=== PATIENT | male | born 1975 | race Caucasian/White ===

== ENCOUNTER 2016-06-05 09:05 | Emergency (ER) | payer OTHER ==
[2016-06-05 09:06] VITALS: BMI 37.1
[2016-06-05 10:05] LABS: BASO # 0.1 K/uL (0.0-0.2); BASO % 0.6 % (0.0-2.0); EOS # 0.1 K/uL (0.0-0.7); EOS % 1.7 % (0.0-4.0); HEMATOCRIT 45.6 % (35.0-51.0); LYMPH % 25.1 % (20.0-40.0); MEAN CELL VOLUME 87.7 fL (80.0-94.0); MEAN CORPUSCULAR HEMOGLOBIN 29.2 pg (27.0-31.0); MEAN CORPUSCULAR HGB CONC 33.4 g/dL (33.0-37.0); MONO # 0.9 K/uL (0.0-0.8); MONO % 10.8 % (0.0-10.0); RED CELL DISTRIBUTION WIDTH 12.8 % (11.5-14.5)
[2016-06-05 10:13] LABS: CHLORIDE 102 mmol/L (98-107); POTASSIUM 4.1 mmol/L (3.6-5.2); SODIUM 140 mmol/L (132-148)
[2016-06-05 10:15] LABS: BILIRUBIN,TOTAL 0.6 mg/dL (0.2-1.3); GFR AFRICAN-AMERICAN > 60
[2016-06-05 10:16] LABS: ALB/GLOB RATIO 1.1 (1.0-2.1); ALKALINE PHOSPHATASE 95 U/L (38-126); ALT/SGPT 58 U/L (21-72); AST/SGOT 43 U/L (17-59); BLOOD UREA NITROGEN 19 mg/dL (9-20); CALCIUM 8.8 mg/dl (8.6-10.4); CARBON DIOXIDE 27 mmol/L (22-30); GLUCOSE,RANDOM 79 mg/dL (75-110); TOTAL PROTEIN 8.1 g/dL (6.3-8.3)
--- NOTE | 2016-06-05 10:42 | RAD ---
HISTORY: SOB COMPARISON: Chest x-ray performed 04/10/16 TECHNIQUE: Chest, one view. FINDINGS: LUNGS: No focal consolidation. Please note that chest x-ray has limited sensitivity for the detection of pulmonary masses. PLEURA: No significant pleural effusion identified. No definite pneumothorax . CARDIOVASCULAR: Heart size appears within normal limits. OSSEOUS STRUCTURES: Degenerative changes of the spine. VISUALIZED UPPER ABDOMEN: Unremarkable. OTHER FINDINGS: None. IMPRESSION: No focal consolidation, significant pleural effusion, or definite pneumothorax identified.
--- NOTE | 2016-06-05 11:48 | C.PDOC ---
History Of Present Illness 41 year old male with a history of stroke and hypercholesterolemia, presents to the ED with complaint of constant chest pressure associated with SOB. PT notes that he works at [employer] with lots of dust which exacerbated the symptoms. (+ ) nervous and anxious. He reports he has had similar episodes in the past and he has not been evaluated by a curriculum and assessment director. Denies diaphoresis, nausea, fever, chills, radiation of pain, or any other complaints at this time. 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 History/Exam Limitations: language barrier Onset/Duration Of Symptoms: Days Current Symptoms Are (Timing): Still Present Severity: Mild Quality: Pressure Associated Symptoms: denies: Nausea, Diaphoresis Past Medical History Reviewed: Historical Data, Nursing Documentation, Vital Signs Vital Signs: Last Vital Signs Temp 98.2 F 06/05/16 13:53 Pulse 65 06/05/16 13:53 Resp 16 06/05/16 13:53 BP 115/70 06/05/16 13:53 Pulse Ox 100 06/05/16 13:53 - Medical History PMH: HTN, Hypercholesterolemia, Hyperlipidemia, TIA (SEPTEMBER 2015) Family History: States: Stroke (Father) - Social History Hx Alcohol Use: No Hx Substance Use: No - Immunization History Hx Tetanus Toxoid Vaccination: No Hx Influenza Vaccination: No Hx Pneumococcal Vaccination: No Review Of Systems Except As Marked, All Systems Reviewed And Found Negative. Constitutional: Negative for: Fever, Chills Cardiovascular: Positive for: Chest Pain (+Chest pressure). Negative for: Palpitations Respiratory: Positive for: Shortness of Breath. Negative for: Cough Gastrointestinal: Negative for: Nausea, Vomiting Musculoskeletal: Negative for: Back Pain Neurological: Negative for: Weakness, Numbness Psych: Positive for: Anxiety Physical Exam - Physical Exam Appears: Non-toxic, No Acute Distress, Other (+Anxious) Skin: Normal Color, Warm, Dry Head: Atraumatic, Normacephalic Eye(s): bilateral: Normal Inspection, EOMI Nose: Normal Oral Mucosa: Moist Throat: Normal, No Erythema, No Exudate Neck: Normal ROM, Supple Chest: Symmetrical, No Deformity, No Tenderness Cardiovascular: Rhythm Regular, No Murmur Respiratory: Normal Breath Sounds, No Accessory Muscle Use, No Rales, No Rhonchi , No Wheezing Gastrointestinal/Abdominal: Normal Exam, Soft, No Tenderness Extremity: Normal ROM Neurological/Psych: Oriented x3, Normal Speech, Normal Cognition ED Course And Treatment - Laboratory Results Result Diagrams: 06/05/16 10:01 06/05/16 10:01 ECG: Interpreted By Me, Viewed By Me ECG Rhythm: Sinus Rhythm Rate From EC O2 Sat by Pulse Oximetry: 96 (Room air) Pulse Ox Interpretation: Normal - Radiology CXR: Viewed By Me, Read By Radiologist CXR Interpretation: Yes: No Acute Disease Progress Note: CXR, EKG, and Blood work ordered and reviewed. patient treated with Aspirin. On re-evaluation, pt notes some SOB persists. ALbuterol ordered. Upon reevaluation, patient notes chest pain and SOB improved. PT is resting comfortably, is no longer having chest pressure or shortness of breath. Patient is being discharged home and is being advised to follow up with his PMD in 1-3 days. Case discussed with Dr Turner who evaluated pt and agree dupon plan and discharge. Disposition - Disposition Referrals: [facility] at [facility] [Outside] Disposition: HOME/ ROUTINE Disposition Time: 13:40 Condition: STABLE Additional Instructions: Vaya a martinez mdico o la clnica en 1-3 pagan sin falta, para mas evaluacin. [place] los medicamentos barbara indicado. Volver a la nela de emergencia en cualquier momento si los sntomas persisten o empeoran. Prescriptions: Albuterol HFA [Ventolin HFA 90 mcg/actuation (8 g)] 2 puff IH [id number] #1 puff Instructions: Dyspnea (ED) Print Language: CZECH - Clinical Impression Clinical Impression: Chest pain, Shortness of breath - PA / PROBLEM MANAGER / Resident Statement MD/DO has reviewed & agrees with the documentation as recorded. - Scribe Statement The provider has reviewed the documentation as recorded by the Scribe Tirso León. All medical record entries made by the Scribe were at my direction and personally dictated by me. I have reviewed the chart and agree that the record accurately reflects my personal performance of the history, physical exam, medical decision making, and the department course for this patient. I have also personally directed, reviewed, and agree with the discharge instructions and disposition.
[2016-06-05] MEDS ORDERED: Albuterol 0.083% Inhal Sol (2.5 mg/3 mL) UD IH STA (11:58)
[2016-06-05] MEDS ORDERED: Albuterol 0.083% Inhal Sol (2.5 mg/3 mL) UD ONE (12:25)
[2016-06-05 13:54] VITALS: BP 115/70; PULSE 65; RESP 16; TEMP 98.2
[2016-06-05 14:37] VITALS: O2SAT 96
--- NOTE | 2016-06-13 12:34 | CARD ---
APPROVED REPORT EKG Measurement Heart [id number] HI 146P45 [id number] <Conclusion> Normal sinus rhythm Left axis deviation Abnormal ECG
== END 2016-06-05 13:53 | disposition home or self-care (01) ==
LOC: C.ER 09:05
DX: R07.9 Chest pain, unspecified (principal); R06.02 Shortness of breath

== ENCOUNTER 2016-07-09 09:53 | Emergency (ER) | payer OTHER ==
[2016-07-09 09:53] VITALS: BMI 37.1
[2016-07-09 10:13] VITALS: TEMP 98
--- NOTE | 2016-07-09 10:14 | C.PDOC ---
Chief Complaint (Nursing): Chest Pain Past Medical History Vital Signs: Last Vital Signs Temp 98.6 F 07/09/16 10:01 Pulse 65 07/09/16 10:01 Resp 18 07/09/16 10:01 BP 135/77 07/09/16 10:01 Pulse Ox 97 07/09/16 10:01 - Medical History PMH: HTN, Hypercholesterolemia, Hyperlipidemia, TIA (SEPTEMBER 2015) Denies: Chronic Kidney Disease Family History: States: Unknown Family Hx, Stroke (Father) - Social History Hx Alcohol Use: No Hx Substance Use: No - Immunization History Hx Tetanus Toxoid Vaccination: No Hx Influenza Vaccination: No Hx Pneumococcal Vaccination: No ED Course And Treatment O2 Sat by Pulse Oximetry: 97
[2016-07-09] MEDS ORDERED: Aspirin 325 mg EC Tablets PO STA (10:38)
[2016-07-09] MEDS ORDERED: Aspirin 325 mg EC Tablets PO ONE (10:48)
[2016-07-09 10:52] LABS: BASO # 0.1 K/uL (0.0-0.2); BASO % 0.7 % (0.0-2.0); EOS # 0.2 K/uL (0.0-0.7); EOS % 1.9 % (0.0-4.0); HEMATOCRIT 44.1 % (35.0-51.0); LYMPH # 2.3 K/uL (1.0-4.3); LYMPH % 28.8 % (20.0-40.0); MEAN CELL VOLUME 87.5 fL (80.0-94.0); MEAN CORPUSCULAR HEMOGLOBIN 29.4 pg (27.0-31.0); MEAN CORPUSCULAR HGB CONC 33.6 g/dL (33.0-37.0); MEAN PLATELET VOLUME 8.3 fL (7.2-11.7); MONO # 0.8 K/uL (0.0-0.8); NRBC % 0.1 % (0.0-2.0); RED CELL DISTRIBUTION WIDTH 12.8 % (11.5-14.5); WHITE BLOOD COUNT 8.1 K/uL (4.8-10.8)
[2016-07-09 11:01] LABS: CHLORIDE 101 mmol/L (98-107); POTASSIUM 3.6 mmol/L (3.6-5.2); SODIUM 141 mmol/L (132-148)
[2016-07-09 11:03] LABS: GFR AFRICAN-AMERICAN > 60
[2016-07-09 11:04] LABS: ALB/GLOB RATIO 1.2 (1.0-2.1); ALKALINE PHOSPHATASE 119 U/L (38-126); ALT/SGPT 56 U/L (21-72); AST/SGOT 42 U/L (17-59); BILIRUBIN,TOTAL 0.7 mg/dL (0.2-1.3); BLOOD UREA NITROGEN 16 mg/dL (9-20); CALCIUM 8.5 mg/dl (8.6-10.4); CARBON DIOXIDE 25 mmol/L (22-30); GLUCOSE,RANDOM 98 mg/dL (75-110); TOTAL PROTEIN 7.6 g/dL (6.3-8.3)
[2016-07-09] MEDS ORDERED: Albuterol 0.083% Inhal Sol (2.5 mg/3 mL) UD IH STA (11:26)
--- NOTE | 2016-07-09 11:36 | RAD ---
PROCEDURE: CHEST RADIOGRAPH, 1 VIEW. Technique: Single view portable semi erect @ 10:41. HISTORY: chest pain COMPARISON: 05/2016. FINDINGS: LUNGS: Clear. PLEURA: No pneumothorax or pleural fluid seen. CARDIOVASCULAR: No radiographic findings to suggest acute or significant cardiovascular disease. OSSEOUS STRUCTURES: No significant abnormalities. VISUALIZED UPPER ABDOMEN: Normal. OTHER FINDINGS: None. IMPRESSION: No active disease. No acute/significant interval changes.
--- NOTE | 2016-07-09 11:52 | C.PDOC ---
History Of Present Illness 41 year old patient, with a past medical history of hypertension, hypercholesterolemia, hyperlipidemia, and TIA, presents to the ED complaining of frequent episodes of mid sternal chest pain for months. Patient states the pain is worse with movement and deep inspiration. Patient had a similar episode today at 7 am. Patient was seen by his PMD who told him his symptoms are muscular and stress based. Patient reports he had a full stress test done and was "good" less then 3 month ago. Patient is Tajik speaking, translation help used. Patient denies shortness of breath, nausea, vomiting, suicidal ideation, homicidal ideation, numbness or weakness. Patient notes he works all 7 days a week, from 5 am to 4 pm. Patient has been stressed recently. Pt states albuterol helps when he gets SOB from dust. similar sob happened in the past. Time Seen by Provider: 07/09/16 10:15 Chief Complaint (Nursing): Chest Pain History Per: Patient History/Exam Limitations: language barrier (ED staff translated) Onset/Duration Of Symptoms: Hrs (7 am today) Current Symptoms Are (Timing): Still Present Context: Other Severity: Mild Pain Scale Rating Of: 3 Quality: "Pain" Exacerbating Factors: Movement, Deep Breathing Alleviating Factors: None Recent travel outside of the [place]: No Past Medical History Reviewed: Historical Data, Nursing Documentation, Vital Signs Vital Signs: Last Vital Signs Temp 98 F 07/09/16 10:09 Pulse 62 07/09/16 12:30 Resp 13 07/09/16 12:30 BP 116/71 07/09/16 12:30 Pulse Ox 97 07/09/16 14:22 - Medical History PMH: HTN, Hypercholesterolemia, Hyperlipidemia, TIA (SEPTEMBER 2015) Family History: States: Stroke (Father) - Social History Hx Alcohol Use: No Hx Substance Use: No - Immunization History Hx Tetanus Toxoid Vaccination: No Hx Influenza Vaccination: No Hx Pneumococcal Vaccination: No Review Of Systems Except As Marked, All Systems Reviewed And Found Negative. Cardiovascular: Positive for: Chest Pain Respiratory: Negative for: Shortness of Breath Gastrointestinal: Negative for: Nausea, Vomiting Neurological: Negative for: Weakness, Numbness Psych: Negative for: Suicidal ideation Physical Exam - Physical Exam Appears: Non-toxic, No Acute Distress Skin: Warm, Dry Head: Atraumatic, Normacephalic Eye(s): bilateral: Normal Inspection, EOMI Oral Mucosa: Moist Neck: Normal ROM, Supple Chest: Symmetrical, No Tenderness Cardiovascular: Rhythm Regular Respiratory: Normal Breath Sounds, No Accessory Muscle Use, No Rales, No Rhonchi , No Wheezing Gastrointestinal/Abdominal: Soft, No Tenderness Back: Normal Inspection, No CVA Tenderness Extremity: Normal ROM Neurological/Psych: Oriented x3, Normal Speech, Normal Cognition, Normal Motor, Normal Sensation Gait: Steady ED Course And Treatment - Laboratory Results Result Diagrams: 07/09/16 10:45 07/09/16 10:45 ECG: Interpreted By Me, Viewed By Me ECG Rhythm: Sinus Rhythm ECG Interpretation: Normal Rate From EC (bpm) O2 Sat by Pulse Oximetry: 97 (room air) Pulse Ox Interpretation: Normal - Radiology CXR: Interpreted by Me CXR Interpretation: Yes: No Acute Disease Progress Note: Plan: EKG, Labs, Chest x-ray, Ecotrin, Albuterol. Upon reassessment, patient's symptoms are resolved. Patient is discharged home with a prescription for Albuterol. Return if symptoms worsen. Reassessment Condition: Improved (on re-evaluation reports resolution of chest pain and sob) Disposition Counseled Patient/Family Regarding: Studies Performed, Diagnosis, Need For Followup, Rx Given - Disposition Referrals: Usha Falk MD [Medical Doctor] - Catherine Mejia MD [Staff Provider] - Disposition: HOME/ ROUTINE Disposition Time: 11:53 Condition: STABLE Additional Instructions: FOLLOW UP WITH YOUR PMD AND APPLE PICKER IN 1-2 DAYS FOR RE-EVALUATION. IF SYMPTOMS GET WORSE OR ANY NEW CONCERNING SYMPTOMS DEVELOP RETURN TO ED. Prescriptions: Ibuprofen [Motrin Tab] 1 tab PO Q6H PRN #15 tab PRN Reason: Pain, Moderate (4-7) Albuterol HFA [Ventolin HFA 90 mcg/actuation (8 g)] 2 puff IH Q4H PRN #1 bottle PRN Reason: Shortness Of Breath Instructions: Chest Pain (ED) Forms: Gen Discharge Inst Tajik Print Language: VINCENTIAN - Clinical Impression Clinical Impression: Costochondritis - PA / [employer] / Resident Statement MD/DO has reviewed & agrees with the documentation as recorded. - Scribe Statement The provider has reviewed the documentation as recorded by the Scribe Damaris Somers All medical record entries made by the Scribe were at my direction and personally dictated by me. I have reviewed the chart and agree that the record accurately reflects my personal performance of the history, physical exam, medical decision making, and the department course for this patient. I have also personally directed, reviewed, and agree with the discharge instructions and disposition.
[2016-07-09] MEDS ORDERED: Albuterol-Ipratrop 3 mg / 0.5 (3 ml) UD ONE (12:12)
[2016-07-09 12:31] VITALS: BP 116/71; PULSE 62; RESP 13
[2016-07-09 12:58] VITALS: O2SAT 97
--- NOTE | 2016-07-14 13:15 | CARD ---
APPROVED REPORT EKG Measurement Heart [id number] TN 152P43 [id number] <Conclusion> Normal sinus rhythm Normal ECG
== END 2016-07-09 12:31 | disposition home or self-care (01) ==
LOC: C.ER 09:53
DX: M94.0 Chondrocostal junction syndrome [Tietze] (principal); I10 Essential (primary) hypertension; E78.00 Pure hypercholesterolemia, unspecified; E78.5 Hyperlipidemia, unspecified

== ENCOUNTER 2016-11-12 11:47 | Emergency (ER) | payer OTHER ==
[2016-11-12 11:47] VITALS: BMI 37.1
--- NOTE | 2016-11-12 12:10 | C.PDOC ---
History Of Present Illness 41 yo male, presents with cp and back pain he has had for 4 days. pt has intermittat pain, described as sharp pain. pt also reports back pain for 4 days. no fevers, mild cough, no sob, n/v/d, or other complaints. noted stress test 06/19 whch was neg. Time Seen by Provider: 11/12/16 12:01 Chief Complaint (Nursing): Chest Pain Past Medical History Reviewed: Historical Data, Nursing Documentation, Vital Signs Vital Signs: Last Vital Signs Temp 99.0 F 11/12/16 15:47 Pulse 61 11/12/16 15:47 Resp 17 11/12/16 15:47 BP 132/79 11/12/16 15:47 Pulse Ox 100 11/12/16 15:47 - Medical History PMH: HTN, Hypercholesterolemia, Hyperlipidemia, TIA (SEPTEMBER 2015) Denies: Chronic Kidney Disease Family History: States: Unknown Family Hx, Stroke (Father) - Social History Hx Alcohol Use: No Hx Substance Use: No - Immunization History Hx Tetanus Toxoid Vaccination: No Hx Influenza Vaccination: No Hx Pneumococcal Vaccination: No Review Of Systems Cardiovascular: Positive for: Chest Pain Musculoskeletal: Positive for: Back Pain Physical Exam - Physical Exam Appears: Well, No Acute Distress Skin: Normal Color, Warm, Dry Eye(s): bilateral: Normal Inspection, PERRL, EOMI Nose: Normal Throat: Normal Neck: Normal Cardiovascular: Rhythm Regular Respiratory: Normal Breath Sounds Gastrointestinal/Abdominal: Normal Exam Back: Normal Inspection Extremity: Normal ROM ED Course And Treatment - Laboratory Results Result Diagrams: 11/12/16 12:17 11/12/16 12:17 O2 Sat by Pulse Oximetry: 99 Medical Decision Making Medical Decision Making: cp r/o acs , dissection - labs imaging pending. ekg sinus aysha [address] t wave changes. 340 : pt offered observation in hospital, declines. pt atypical pain, recent neg stress. no ekg changes, pain x few days, neg trop. ct shows ?infiltrate. pt with mild cough. will d/c with antibitoics Disposition - Disposition Referrals: [facility] [Outside] [facility] at [facility] [Outside] [facility] [Outside] Dony Louie MD [Staff Provider] - Disposition: HOME/ ROUTINE Disposition Time: 15:41 Condition: STABLE Additional Instructions: please follow up with your doctor/clinic. return to er with worsening symptoms or concerns. please see specialist. Prescriptions: levoFLOXacin [Levaquin] 750 mg PO DAILY #7 tab Naproxen 500 mg PO BID PRN #14 ect PRN Reason: Pain, Mild (1-3) Instructions: Chest Pain (ED), Community Acquired Pneumonia (ED) Forms: [employer] (Irish) Print Language: MALTESE - Clinical Impression Clinical Impression: Chest pain, Pneumonia
[2016-11-12 12:21] LABS: BASO # 0.1 K/uL (0.0-0.2); BASO % 0.6 % (0.0-2.0); EOS # 0.2 K/uL (0.0-0.7); EOS % 1.8 % (0.0-4.0); HEMATOCRIT 43.6 % (35.0-51.0); LYMPH # 2.1 K/uL (1.0-4.3); MEAN CELL VOLUME 87.2 fL (80.0-94.0); MEAN CORPUSCULAR HEMOGLOBIN 29.5 pg (27.0-31.0); MEAN CORPUSCULAR HGB CONC 33.8 g/dL (33.0-37.0); MEAN PLATELET VOLUME 7.8 fL (7.2-11.7); MONO # 0.6 K/uL (0.0-0.8); RED CELL DISTRIBUTION WIDTH 12.9 % (11.5-14.5)
[2016-11-12 12:40] LABS: ALB/GLOB RATIO 1.1 (1.0-2.1); ALKALINE PHOSPHATASE 125 U/L (38-126); ALT/SGPT 58 U/L (21-72); AST/SGOT 48 U/L (17-59); BILIRUBIN,TOTAL 0.6 mg/dL (0.2-1.3); BLOOD UREA NITROGEN 15 mg/dL (9-20); CARBON DIOXIDE 27 mmol/L (22-30); CHLORIDE 99 mmol/L (98-107); GFR AFRICAN-AMERICAN > 60; GLUCOSE,RANDOM 155 mg/dL (75-110); SODIUM 139 mmol/L (132-148); TOTAL PROTEIN 7.8 g/dL (6.3-8.3)
[2016-11-12] MEDS ORDERED: Iodixanol 320 MG/ML 100 ML BOTTLE IV ONE (13:15)
[2016-11-12 14:34] VITALS: RESP 17
--- NOTE | 2016-11-12 15:19 | RAD ---
PROCEDURE: CHEST RADIOGRAPH, 1 VIEW portable study 12:20. HISTORY: chest pain COMPARISON: 07/09/2016. FINDINGS: LUNGS: Clear. PLEURA: No pneumothorax or pleural fluid seen. CARDIOVASCULAR: No radiographic findings to suggest acute or significant cardiovascular disease. OSSEOUS STRUCTURES: No significant abnormalities. VISUALIZED UPPER ABDOMEN: Normal. OTHER FINDINGS: None. IMPRESSION: No active disease. No acute/significant interval changes.
--- NOTE | 2016-11-12 15:32 | CT ---
PROCEDURE: CT Angiography Chest, Abdomen and Pelvis with and without intravenous contrast HISTORY: cp radaiting to back COMPARISON: None. TECHNIQUE: Contiguous axial images of the chest, abdomen and pelvis were obtained in the phase of aortic enhancement. A noncontrast enhanced CT of the chest was also obtained to evaluate for possible intramural thrombus. Coronal and sagittal reformats were generated. IV dose administered: 100 mL Visipaque 320 Radiation dose: Total exam DLP = 1524.04 mGy-cm. This CT exam was performed using one or more of the following dose reduction techniques: Automated exposure control, adjustment of the mA and/or kV according to patient size, and/or use of iterative reconstruction technique. FINDINGS: CT ANGIOGRAPHY OF THE CHEST WITH & WITHOUT CONTRAST: AORTA (CHEST AND ABDOMEN): The thoracic and abdominal aorta are unremarkable, without aneurysm, dissection or rupture. No intramural thrombus identified in the thoracic aorta on the non-contrast ct of the chest. The celiac axis, superior mesenteric artery, inferior mesenteric artery and the renal arteries are widely patent. There is very anatomy with what is likely left gastric artery arising directly from the aorta cephalad cephalad to the celiac trunk. The pelvic arteries are unremarkable. LUNGS: Patchy right lower lobe infiltrate versus atelectasis. Follow-up advised. MEDIASTINUM: Unremarkable. Normal caliber aorta and pulmonary arterial trunk. No aortic dissection. Normal size heart. LYMPH NODES: Unremarkable. PLEURA: Unremarkable. No pneumothorax. No pleural fluid. BONES: Unremarkable. OTHER FINDINGS: None. CT ANGIOGRAPHY OF THE ABDOMEN AND PELVIS WITH CONTRAST: LIVER: Unremarkable. No gross lesion or ductal dilatation. GALLBLADDER AND BILE DUCTS: Unremarkable. PANCREAS: Unremarkable. No gross lesion or ductal dilatation. SPLEEN: Unremarkable. ADRENALS: Unremarkable. No mass. KIDNEYS AND URETERS: Unremarkable. No hydronephrosis. No solid mass. VASCULATURE: Unremarkable. No aortic aneurysm. STOMACH AND BOWEL: Unremarkable. No obstruction. No gross mural thickening. APPENDIX: Normal appendix. PERITONEUM: Unremarkable. No free fluid. No free air. LYMPH NODES: Unremarkable. No enlarged lymph nodes. Bones No acute fracture. OTHER FINDINGS: None. IMPRESSION: No evidence of aortic dissection or thoracic or abdominal aortic aneurysm. Minimal right lower lobe infiltrate versus atelectasis. No other acute abnormality.
[2016-11-12 15:48] VITALS: BP 132/79; PULSE 61; TEMP 99
[2016-11-12 19:24] VITALS: O2SAT 99
--- NOTE | 2016-11-13 12:48 | CARD ---
APPROVED REPORT EKG Measurement Heart [id number] NC 154P43 [id number] <Conclusion> Sinus bradycardia Otherwise normal ECG
== END 2016-11-12 16:11 | disposition home or self-care (01) ==
LOC: C.ER 11:47
DX: J18.9 Pneumonia, unspecified organism (principal); R07.9 Chest pain, unspecified
CPT/HCPCS: 71010; 71275; 74175; 80053; 84484; 85025; 85610; 85730; 93005; 99285; Q9967

== ENCOUNTER 2017-09-03 10:01 | Emergency (ER) | payer SELFPAY ==
[2017-09-03 10:01] VITALS: BMI 37.1
[2017-09-03 11:47] LABS: BASO % 0.6 % (0.0-2.0); EOS # 0.1 K/uL (0.0-0.7); EOS % 1.2 % (0.0-4.0); HEMOGLOBIN 14.7 g/dL (12.0-18.0); LYMPH # 1.5 K/uL (1.0-4.3); LYMPH % 17.5 % (20.0-40.0); MEAN CELL VOLUME 86.3 fL (80.0-94.0); MEAN CORPUSCULAR HEMOGLOBIN 30.4 pg (27.0-31.0); MEAN CORPUSCULAR HGB CONC 35.2 g/dL (33.0-37.0); MEAN PLATELET VOLUME 7.8 fL (7.2-11.7); MONO # 0.7 K/uL (0.0-0.8); MONO % 7.8 % (0.0-10.0); NEUT # 6.2 K/uL (1.8-7.0); NEUT % 72.9 % (50.0-75.0); RBC 4.84 Mil/uL (4.40-5.90); RED CELL DISTRIBUTION WIDTH 12.9 % (11.5-14.5); WHITE BLOOD COUNT 8.5 K/uL (4.8-10.8)
[2017-09-03 12:03] LABS: ALB/GLOB RATIO 1.2 (1.0-2.1); ALBUMIN 4.4 g/dL (3.5-5.0); ALT/SGPT 57 U/L (21-72); AST/SGOT 45 U/L (17-59); BLOOD UREA NITROGEN 17 mg/dL (9-20); CALCIUM 8.9 mg/dl (8.6-10.4); GFR AFRICAN-AMERICAN > 60; GFR NON-AFRICAN AMERICAN > 60
[2017-09-03 12:13] LABS: B-TYPE NATRIURETIC PEPTIDE 29.6 pg/mL (0-450)
[2017-09-03 12:45] LABS: BARBITURATES, UR NEGATIVE (NEGATIVE); BENZODIAZEPINES, UR NEGATIVE (NEGATIVE); PHENCYCLIDINE, UR NEGATIVE (NEGATIVE)
[2017-09-03 13:05] LABS: OPIATES, UR NEGATIVE (NEGATIVE)
--- NOTE | 2017-09-03 13:44 | RAD ---
PROCEDURE: CHEST RADIOGRAPH, 1 VIEW HISTORY: Chest pain COMPARISON: 07/09/2016. FINDINGS: LUNGS: The lungs are well inflated and clear. PLEURA: No pneumothorax or pleural fluid seen. CARDIOVASCULAR: Normal. OSSEOUS STRUCTURES: No significant abnormalities. VISUALIZED UPPER ABDOMEN: Normal. OTHER FINDINGS: There is chronic elevation of the right hemidiaphragm. IMPRESSION: No active pulmonary disease.
[2017-09-03 16:27] VITALS: BP 112/79; PULSE 58; RESP 16; TEMP 98.2; O2SAT 98
--- NOTE | 2017-09-03 16:35 | C.PDOC ---
History Of Present Illness 42 y/o male, w/PMhx of hypercholesterolemia, presents to the ER complaining of chest wall pain, headache, and dizziness which has been present for the past 3 days. Patient states that the pain is worse with deep breathing and movement. Patient denies having hx of DVT/PE and recent travel. Time Seen by Provider: 09/03/17 10:28 Chief Complaint (Nursing): Headache History Per: Patient History/Exam Limitations: no limitations Onset/Duration Of Symptoms: Days Current Symptoms Are (Timing): Still Present Severity: Moderate Past Medical History Reviewed: Historical Data, Nursing Documentation, Vital Signs Vital Signs: Last Vital Signs Temp 98.2 F 09/03/17 16:27 Pulse 58 L 09/03/17 16:27 Resp 16 09/03/17 16:27 BP 112/79 09/03/17 16:27 Pulse Ox 98 09/03/17 17:09 - Medical History PMH: HTN, Hypercholesterolemia, Hyperlipidemia, TIA (SEPTEMBER 2015) Denies: Chronic Kidney Disease Surgical History: No Surg Hx Family History: States: Stroke (Father) - Social History Hx Alcohol Use: No Hx Substance Use: No - Immunization History Hx Tetanus Toxoid Vaccination: No Hx Influenza Vaccination: No Hx Pneumococcal Vaccination: No Review Of Systems Except As Marked, All Systems Reviewed And Found Negative. Cardiovascular: Positive for: Chest Pain Respiratory: Negative for: Shortness of Breath Neurological: Positive for: Dizziness Physical Exam - Physical Exam Appears: Non-toxic, No Acute Distress Skin: Normal Color, Warm, Dry Head: Atraumatic, Normacephalic Eye(s): bilateral: Normal Inspection Nose: Normal Oral Mucosa: Moist Neck: Supple Chest: Symmetrical, Tenderness (reproducible chest wall tenderness) Cardiovascular: Rhythm Regular Respiratory: Normal Breath Sounds, No Rales, No Rhonchi, No Wheezing Gastrointestinal/Abdominal: Normal Exam, Soft, No Tenderness, No Guarding, No Rebound Neurological/Psych: Oriented x3, Normal Speech ED Course And Treatment - Laboratory Results Result Diagrams: 09/03/17 11:41 09/03/17 11:41 ECG: Interpreted By Me, Viewed By Me ECG Rhythm: Sinus Rhythm Interpretation Of ECG: NSR with normal intervals and normal axises Rate From EC O2 Sat by Pulse Oximetry: 98 (RA) Pulse Ox Interpretation: Normal - Radiology CXR: Interpreted by Me, Viewed By Me CXR Interpretation: Yes: No Acute Disease Medical Decision Making Medical Decision Making: Plan: --Labs --CXR --EKG --Toradol IV Updates: Heart Score is 1 and 2 sets of Troponin are negative. On re-evaluation, patient feels better. Patient has been discharged home and instructed to follow up with clinic in 2 days. Disposition Counseled Patient/Family Regarding: Studies Performed, Diagnosis, Need For Followup, Rx Given - Disposition Referrals: [facility] at [facility] [Outside] Disposition: HOME/ ROUTINE Disposition Time: 16:33 Condition: STABLE Additional Instructions: follow up with medical clinic in 2 days call to make an appointment take pain medication as needed return to hospital if symptoms worsens or progress Prescriptions: Naproxen [Naprosyn] 500 mg PO BID PRN #16 tab PRN Reason: Pain, Moderate (4-7) Instructions: Vertigo (a Type of Dizziness), Costochondritis (DC) Forms: Gen Discharge Inst Costa Rican, [employer] (Costa Rican), Work Excuse Print Language: TAJIK - Clinical Impression Clinical Impression: Chest wall pain, Dizziness - Scribe Statement The provider has reviewed the documentation as recorded by the Hilda Gaitan Provider Attestation: All medical record entries made by the Hilda were at my direction and personally dictated by me. I have reviewed the chart and agree that the record accurately reflects my personal performance of the history, physical exam, medical decision making, and the department course for this patient. I have also personally directed, reviewed, and agree with the discharge instructions and disposition.
--- NOTE | 2017-09-04 23:46 | CARD ---
APPROVED REPORT EKG Measurement Heart [id number] NC 152P44 [id number] <Conclusion> Normal sinus rhythm Normal ECG
== END 2017-09-03 16:41 | disposition home or self-care (01) ==
LOC: C.ER 10:01
DX: R42 Dizziness and giddiness (principal); R07.89 Other chest pain; E78.00 Pure hypercholesterolemia, unspecified; I10 Essential (primary) hypertension; Z86.73 Personal history of transient ischemic attack (TIA), and cerebral infarction without residual deficits
CPT/HCPCS: 71045; 80053; 83880; 84484; 85025; 85378; 93005; 96374; 99285; G0480; J1885